=== PATIENT | female | born 1940 | race African-American/Black ===

== ENCOUNTER 2020-03-20 10:02 | Emergency (ER) | payer OTHER, MEDICAID ==
[~2020-03-20] VITALS: Ht 165.1 cm; Wt 49.9 kg
[~2020-03-20 10:02] MED LIST: ASPI81CH43 PO; CARV12.544 PO; DONETAB5 PO; FER325T PO; GABA100C9 PO; LEVO50TA7 PO; LIS20T PO; LORA-622 PO; METF-489 PO; MULT-908 OR; NAPR500T31 PO; NIFE1TAB31 PO; PANT1INJ3 PO; ROSU10TA16 PO
[2020-03-20] MEDS ORDERED: SODIUM CHLORIDE 0.9% 1,000 ML IVB ONE (10:30)
[2020-03-20] MEDS ORDERED: SODIUM CHLORIDE 0.9% 1,000 ML IV ONE (10:30)
[2020-03-20 10:53] LABS: Eosinophils # (auto) 0.2 10 ^3/uL (0-0.8); Neutrophils # (auto) 4.7 10 ^3/uL (1.6-8.6)
[2020-03-20 10:54] LABS: Basophils # (auto) 0 10 ^3/uL (0-0.2); Basophils % (auto) 0.4 % (0.0-2.0); Eosinophils % (auto) 2.4 % (0.0-7.0); Hematocrit 27.2 % (36.0-46.0); Lymphocytes % (auto) 15.2 % (10.0-50.0); Mean Corpuscular Hemoglobin 34.3 pg (28.0-32.0); Mean Corpuscular Hgb Conc. 33.2 g/dL (32.0-36.0); Mean Corpuscular Volume 103.5 fL (80.0-100.0); Monocytes # (auto) 0.6 10 ^3/uL (0-1.3); Monocytes % (auto) 9.7 % (0.0-12.0); Neutrophils % (auto) 72.3 % (37.0-80.0); Nucleated Red Blood Cells % 1.3 %; Platelet Count (auto) 286 10^3/uL (140-450); Red Blood Cells 2.63 10^6/uL (4.0-5.20); Red Cell Distribution Width 17.8 % (11.8-14.3); White Blood Cell 6.5 10^3/uL (4.4-10.8)
[2020-03-20 11:10] LABS: Albumin 3.3 g/dL (3.4-5.0); Anion Gap 7 (5-15); Blood Urea Nitrogen 13 mg/dL (7-18); Calcium 9.1 mg/dL (8.5-10.1); Carbon Dioxide 23 mmol/L (21-32); Chloride 110 mmol/L (98-107); Glucose 112 mg/dL (74-106); Potassium 3.5 mmol/L (3.5-5.1); Sodium 140 mmol/L (136-145)
[2020-03-20 11:15] LABS: Alanine Aminotransferase 15 U/L (13-56); Alkaline Phosphatase 56 U/L (45-117); Aspartate Aminotransferase 12 U/L (15-37); BUN/Creatinine Ratio 16.5; Bilirubin, Total 0.5 mg/dL (0.2-1.0); GFR African American 91 mL/min; GFR Non-African American 75 mL/min; Total Protein 6.3 g/dL (6.4-8.2)
[2020-03-20 11:16] LABS: Blood Alcohol < 3.0 mg/dL (0-5)
[2020-03-20 12:09] LABS: Lactic Acid w/Reflex 4.5 mmol/L (0.4-2.0)
[2020-03-21 01:07] VITALS: BP 126/78
== END 2020-03-20 17:22 | disposition home or self-care (01) ==
LOC: EDBD 10:02 → ER 10:02
DX: G93.41 Metabolic encephalopathy (principal); F03.90 Unspecified dementia, unspecified severity, without behavioral disturbance, psychotic disturbance, mood disturbance, and anxiety; E46 Unspecified protein-calorie malnutrition; E11.9 Type 2 diabetes mellitus without complications; I10 Essential (primary) hypertension; E78.5 Hyperlipidemia, unspecified; Z79.899 Other long term (current) drug therapy; Z79.82 Long term (current) use of aspirin
CPT/HCPCS: 36415; 70450; 71045; 80053; 80320; 83605; 84484; 85025; 87040